=== PATIENT | female | born 2000 | race Two or more races ===

== ENCOUNTER 2022-07-12 16:27 | Outpatient (CLI) | payer OTHER ==
--- NOTE | 2022-07-13 11:42 | XRAY Report ---
PROCEDURE: Chest 2 View X-Ray INDICATIONS: CHEST PX TECHNIQUE: 2 views of the chest were acquired. COMPARISON: None. FINDINGS: Surgical changes and devices: None. Lungs and pleura: No pleural effusions or pneumothorax. Lungs are clear. Mediastinum: Mediastinal contours are normal. Heart size is normal. Bones and chest wall: No suspicious bony abnormalities. Soft tissues appear unremarkable. IMPRESSION: No acute cardiopulmonary disease. Reviewed by: Lucinda Eubanks MD on 07/13/2022 10:40 AM [facility] Approved by: Lucinda Eubanks MD on 07/13/2022 10:40 AM [facility] Station ID: [id number]
== END 2022-07-12 16:28 | disposition home or self-care (01) ==
LOC: LAB 16:27 → DI 16:28
PROVIDERS: ATTEND Physician Assistant Medical
DX: R07.9 Chest pain, unspecified (principal)